=== PATIENT | female | born 1965 | race African-American/Black ===

== ENCOUNTER 2019-08-15 10:49 | Emergency (ER) | payer OTHER, SELFPAY ==
[2019-08-15 11:04] VITALS: BP 126/75; PULSE 72; RESP 18; TEMP 36.6; O2SAT 99
--- NOTE | 2019-08-15 11:59 | ED.URI ---
HPI - URI/Sore Throat General Chief Complaint: Upper Respiratory Infection Stated Complaint: Cough Time Seen by Provider: 08/15/19 11:59 Source: patient and RN notes reviewed Mode of arrival: ambulatory Limitations: no limitations History of Present Illness HPI Narrative: 53 year old female who presents to [facility] care with complaints of acute cough and headaches for the past 4 days. Patient states that cough is dry denies any shortness of breath or wheezing, states that she has had fevers up to 100F, and frontal headaches which she denies at present. Patient states that she has taken Robitussin cough medication, cough drops and excedrin for her symptom. Patient denies tobacco use but states is exposed to second hand smoke and her has bronchitis presently. Patient states that she did have a flu shot this season. MD elicited complaint: cough and other (headache) Onset (ago): day(s) (4) Consistency: constant Severity: mild Pain scale (0-10): 1 Description of mucous: other (dry cough) Able to tolerate fluids by mouth: Yes Exacerbating factors: exertion Relieving factors: nothing Context: sick contacts (spouse has bronchitis) Associated symptoms: headache and cough Treatments prior to arrival: other (Robitussin, cough drops and Excedrin) Related Data Allergies Allergy/AdvReac Type Severity Reaction Status Date / Time No Known Allergies Allergy Verified 08/15/19 11:09 Review of Systems Review of Systems: Narrative: CONSTITUTIONAL:Reports temperature of 100F, chills, or sweats. EYES: Denies visual changes, redness, or discharge. ENT: Denies rhinorrhea, congestion, sore throat, or otalgia. CARDIOVASCULAR: Denies chest pain, palpitations, or edema. RESPIRATORY:Positive for dry cough, denies any acute dyspnea. GASTROINTESTINAL: Denies abdominal pain, nausea, vomiting, or diarrhea. GENITOURINARY: Denies dysuria or hematuria. SKIN: Denies rash or itching. MUSCULOSKELETAL: Denies back pain, joint pain, or myalgia. NEUROLOGIC:Positive headache, no numbness, or weakness. PSYCHIATRIC: Denies anxiety or depression. All systems reviewed & are unremarkable except as noted in HPI and below PMFSH Past Medical History Medical History (Updated 08/19/19 @ 15:55 by Negin Shine NP) Menses, irregular Tubal infertility in female Social History Social History (Updated 08/19/19 @ 15:51 by Negin Shine NP) Smoking status: Never smoker Second hand tobacco smoke exposure: Yes Living arrangements: with family Gender identity (if verbalized by the patient): Female Comments At time of signature, agree with nursing past medical, surgical, social history. There is no relevant family history pertinent to the presenting complaint Exam Narrative: Exam Narrative: GENERAL: Well-appearing, well-nourished, and in no acute distress. HEAD: Normocephalic, atraumatic. EYES: PERRLA and EOMI. ENT: Nares mild redness, scant clear rhinorrhea or epistaxis. Mucous membranes moist.TM's normal with good light reflex, throat mild redness with no lesions or tonsil swelling NECK: Supple.no lymphadenopathy CHEST: Coarse to auscultation with frequent harsh cough, No respiratory distress.SAO2 99% on room air HEART: Regular rate and rhythm. No murmur heard. Normal peripheral pulses. ABDOMEN: Soft, nontender, nondistended, normal active bowel sounds. EXTREMITIES: Normal range of motion. No edema. SKIN: Warm, dry, no rash. NEURO: No focal deficits. Alert and oriented x3. Course Vital Signs Vital signs: Vital Signs Temperature 36.6 C 08/15/19 11:04 Pulse Rate 72 08/15/19 11:04 Respiratory Rate 18 08/15/19 11:04 Blood Pressure 126/75 08/15/19 11:04 Pulse Oximetry 99 08/15/19 11:04 Temperature 36.6 C 08/15/19 11:04 Pulse Rate 72 08/15/19 11:04 Respiratory Rate 18 08/15/19 11:04 Blood Pressure 126/75 08/15/19 11:04 Pulse Oximetry 99 08/15/19 11:04 MDM - URI/Sore Throat Differential Diagnosis Differential
== END 2019-08-15 12:20 | disposition home or self-care (01) ==
PROVIDERS: Emergency Provider Registered Nurse
DX: J06.9 Acute upper respiratory infection, unspecified (principal)
CPT/HCPCS: 99203; G0463